=== PATIENT | female | born 1975 | race Caucasian/White ===

== ENCOUNTER 2016-11-17 11:10 | Observation (INO) ==
--- NOTE | 2016-11-17 11:40 | EKG Report ---
Stationary ECG Study [facility] ER Test Date: 11/17/2016 11:26:29 AM Pat Name: PHILIP ISSA Department: Room: Gender: F Tableau Analyst: Jarett Lim : 1975 Requested by: Barron Tejeda Order Number: [id number] Reading MD: CASSANDRA ANGLIN Intervals [place] Rate: 72 P: 30 UT: 163 QRS: 40 QRSD: 87 T: 46 QT: 387 QTc: 411 Interpretive Statements SINUS RHYTHM Electronically Signed On 11-17-16 16:24:00 CDT by CASSANDRA ANGLIN [email or web address]
[2016-11-17] MEDS ORDERED: METOPROLOL TARTRATE 5 MG/5 ML VIAL IV STA (11:49)
[2016-11-17] MEDS ORDERED: ENOXAPARIN 100 MG/ML SYRINGE SUBCUT STA (11:49)
[2016-11-17] MEDS ORDERED: MORPHINE 2 MG/1 ML SYRINGE IV PRN ×2 (11:49→14:23)
[2016-11-17] MEDS ORDERED: NITROGLYCERIN 2% OINT 1 INCH/GM PACK TOP STA (11:49)
[2016-11-17] MEDS ORDERED: ASPIRIN 325 MG TABLET PO STA (11:49)
[2016-11-17] MEDS ORDERED: ONDANSETRON 4 MG/2 ML VIAL IV PRN ×2 (11:49→14:23)
--- NOTE | 2016-11-17 11:53 | Emergency Department Note ---
Arrival - Arrival Chief Complaint: Chest Pain Stated Complaint: chest pain/pressure. Numb arms, sweating, lathag. ED Nursing Triage Note: c/o mid-sternal chest pain radiating into bilateral shoulders/arms onset approx 2 weeks ago. Describes as pressure. +shortness of breath. +nausea. +generalized weakness. Also c/o numbness to bilateral arms onset 11/03/16. Mode of Arrival: Ambulatory Limitations: No Limitations Source: Patient, RN Notes Reviewed Time Seen by Provider: 11/17/16 11:44 - History of Present Illness HPI Narrative: Patient is a 41-year-old white female with a two-week history of a "sharp" chest pain off and on. Over the weekend 3 days ago this changed to a "pressure " sensation. Patient states that her pain is better when she remains still. She does have some exertional diaphoresis. She denies shortness of breath. She states that she has "numbness" in both arms. She denies any nausea or vomiting. She denies any history of diabetes mellitus. She does have a history of hypertension. She has never been a cigarette smoker. Onset (ago): week(s) (2) Consistency: constant Severity: moderate Date of Last Menstrual Period: 3 weeks ago Allergies/Adverse Reactions: Allergies Allergy/AdvReac Type Severity Reaction Status Date / Time Sulfa (Sulfonamide Allergy RASH Verified 11/17/16 11:24 Antibiotics) ciprofloxacin [From Cipro] AdvReac Anxiety Verified 11/17/16 11:24 levofloxacin [From Levaquin] AdvReac Anxiety Verified 11/17/16 11:24 Review of System - Review of System 12 point system: reviewed and no additional remarkable complaints except as stated - Review of System Constitutional: Absent: chills, fever Respiratory: Absent: cough, respiratory distress Cardiovascular: Present: chest pain. Absent: palpitations Gastrointestinal: Present: abdominal pain (Epigastric). Absent: nausea, vomiting Medical,Surgical,& Family Hx - Medical History Cardio: History of: Hypertension - Social History Smoking Status: Never smoker Frequency of Alcohol Use: None Type of Drug Use: None Functional capacity: independent ambulation Exam Vital Signs: Vital Signs Temperature 97.7 F 11/17/16 11:49 Pulse Rate 68 11/17/16 12:30 Respiratory Rate 14 11/17/16 12:30 Blood Pressure 121/78 11/17/16 12:30 O2 Sat by Pulse Oximetry 96 11/17/16 12:30 GENERAL: This is a well-nourished well-developed white female in no apparent distress. VITAL SIGNS: Reviewed HEENT: Head is atraumatic and normocephalic. Pupils are equal round react to light. Extraocular movements are intact. Oropharynx is benign with moist mucous membranes. NECK: Neck is soft and supple without tenderness. There are no masses. There is no lymphadenopathy. LUNGS: Lungs are clear to auscultation. Chest rises symmetrically. There is anterior chest wall tenderness to palpation. CV: Heart is regular rate and rhythm without murmurs rubs or gallops. ABDOMEN: Abdomen is soft, nontender to palpation. There are no abdominal abnormal masses palpated. There is no organomegaly. Bowel sounds are present and active. SKIN: Skin is warm and dry. No rash. EXTREMITIES: Patient has full range of motion without tenderness. There is no pedal edema. NEUROLOGIC: Awake alert and oriented 4. Cranial nerves II through XII are grossly intact. Motor is 5 over 5 in all extremities bilaterally. Course - Consultations Consultation #1: Discussed with hospitalist. Patient will be admitted to their service. Time: 13:17 Results - Labs CBC & BMP: 11/17/16 12:09 11/17/16 12:09 Lab Results: I have reviewed the patients labs Labs: Laboratory Tests 11/17/16 12:09 Troponin I < 0.015 - EKG EKG results: interpreted by ERMD - Impressions EKG: Normal sinus rhythm with a rate of 72, normal ST-T waves, normal axis. - Diagnostic Findings Procedure: Chest x-ray: image reviewed by me (No infiltrates, no pleural effusions) Disposition Clinical Impression: Chest pain, Essential hypertension Case discussed with: patient Condition: Stable
[2016-11-17] MEDS ORDERED: NITROGLYCERIN 2% OINT 1 INCH/GM PACK TOP ONE (12:00)
[2016-11-17] MEDS ORDERED: ONDANSETRON 4 MG/2 ML VIAL ONE (12:00)
[2016-11-17] MEDS ORDERED: ENOXAPARIN 120 MG/0.8 ML SYRINGE SUBCUT ONE (12:00)
[2016-11-17] MEDS ORDERED: MORPHINE 2 MG/1 ML SYRINGE ONE (12:01)
[2016-11-17] MEDS ORDERED: METOPROLOL TARTRATE 5 MG/5 ML VIAL IV ONE (12:01)
[2016-11-17] MEDS ORDERED: ASPIRIN 325 MG TABLET ONE (12:01)
[2016-11-17 12:23] LABS: Basophils % 0.4 % (0.0-0.8); Eosinophils # 0.2 10*3/uL (0.0-0.87); Eosinophils % 2.3 % (0.00-10.9); Hematocrit 38.5 VOL% (35.7-47.0); Hemoglobin 13.7 GM/DL (12.0-16.0); Immature Granulocytes % 0.3 %; Immature Granulocytes Absolute 0.03 #; Lymphocytes # 1.7 10*3/uL (1.4-4.0); Mean Corpuscular HGB Conc 35.6 GM/DL (32-36); Mean Corpuscular Hemoglobin 31 PG (27-34); Mean Corpuscular Volume 86.3 FL (87-102); Mean Platelet Volume 10.5 FL (9.6-12.0); Monocytes # 0.8 10*3/uL (0.11-0.8); Monocytes % 7.7 % (1.7-12.7); Neutrophils # 7.2 10*3/uL (1.4-7.4); Neutrophils % 72.3 % (38.7-73.9); Platelet Count 219 T/CUMM (130-400); Red Blood Count 4.46 MC/CUMM (3.8-5.5); Red Cell Distribution Width 12.8 % (9.3-17.3); White Blood Count 9.9 T/CUMM (4-12)
[2016-11-17 12:27] LABS: Apearance,Urine Slightly Hazy (Clear); Bacteria,Urine Occasional /HPF (Few); Bilirubin,Urine Negative (Negative); Blood, Urine Small mg/dL (Negative); Glucose,Urine (UA) Negative (Negative); Ketones,Urine 5 mg/dL (Negative); Mucus,Urine Occasional /LPF (Occasional); Nitrite,Urine Negative (Negative); Protein,Urine Negative; RBC,Urine 1 /HPF (0-4); Squamous Epithelial Cell,Urine Occasional /HPF (0-10); Urine Color Yellow (Yellow); Urine Specific Gravity 1.013 (1.001-1.035); Urine Urobilinogen < 2.0 EU/DL (0.2-1.0); WBC,Urine 4 /HPF (0-6)
--- NOTE | 2016-11-17 12:35 | XRay Report ---
Exam: XR chest 2V Indication: Midline chest pain Comparison study: None Findings: The heart, mediastinum, and bony structures are within normal limits. There is no focal consolidation, pneumothorax or pleural effusion identified. Impression: No acute cardiopulmonary process. PROCEDURE INTERPRETED AT [facility] DEPARTMENT OF RADIOLOGY Final Report Signed by: Edwardo Farley
[2016-11-17 12:39] LABS: PT Patient Result 10.9 SECS; Partial Thromboplastin Time 27.9 SECS (0-40)
[2016-11-17 12:56] LABS: Albumin 3.5 G/DL (3.4-5.0); Bilirubin,Total 1.2 MG/DL (0.2-1.0); Calcium 8.6 MG/DL (8.5-10.1); Potassium 3.3 MMOL/L (3.5-5.1); Total Protein 7.1 G/DL (6.4-8.3)
[2016-11-17] MEDS ORDERED: guaiFENesin/DM ER 600-30 MG TABLET PO PRN (14:23)
[2016-11-17] MEDS ORDERED: diphenhydrAMINE CAP 25 MG CAPSULE PO PRN (14:23)
[2016-11-17] MEDS ORDERED: PROMETHAZINE 25 MG/1 ML VIAL IM PRN (14:23)
[2016-11-17] MEDS ORDERED: DOCUSATE SODIUM 100 MG CAPSULE PO PRN (14:23)
[2016-11-17] MEDS ORDERED: ACETAMINOPHEN 325 MG TABLET PO PRN ×2 (14:23)
--- NOTE | 2016-11-17 14:31 | Hospitalist History & Physical ---
<LrasJia guy - Last Filed: 11/17/16 14:28> Assessment and Plan - Time spent with patient Time spent with patient: Greater than 30 minutes (1) Bilateral lower extremity edema Status: Acute Assessment and plan: 41-year-old white female with history of hypertension admitted by the hospitalist service with 2 week history of chest pain and pressure with numbness and tingling in her bilateral hands and diaphoresis along with lower extremity edema. Patient is being admitted to telemetry unit with serial troponins and EKG. Cardiology will be consulted for her increased risk for heart disease. Patient also has bilateral lower extremity edema so we will start diuresis. Will check an echo for signs of heart failure. Will hold off on IV fluids and keep her n.p.o. until cardiology sees her. Dr. Cervantes will see and examine patient and further recommendations to follow. Current Visit: Yes (2) Chest pain Status: Acute Current Visit: Yes (3) Essential hypertension Status: Acute Current Visit: Yes History of Present Illness Chief complaint: Chest pain and pressure History of present illness: Ms. Verdin is a 41 year old white female with history of hypertension presenting to the ED with a 2 week history of intermittent chest pain and pressure. Patient states approximately 2 weeks ago she started getting stabbing substernal chest pain that is increased in frequency. Patient states in the last day or 2 it is now pressure in her substernal area that is associated with diaphoresis and bilateral arm numbness and tingling. Patient states she is hardly been able to get out of bed the last day or 2 because it makes her weak and dizzy and increases the pressure and makes her sweat. Patient is obese with a sedentary lifestyle and she has a family history of heart disease and MA resulting in at a young age. Patient is not a smoker. She denies headache but states she does have blurry vision with these episodes. She also has some mild shortness of breath with them as well. She denies abdominal pain, constipation or diarrhea, and she denies lower extremity edema but upon inspection she does have pitting edema in the pretibial region. She is afebrile and her vital signs are stable. EKG and troponins are normal. She does have a mild elevated T bili of 1.2 and small leukocytes in her urine. After discussion with Dr. Ellsworth the ED physician and Dr. Cervantes the admitting hospitalist, it was agreed patient be admitted for further evaluation and treatment. Home Medications Medication Instructions Recorded Confirmed Type Methyldopa 500 mg PO QAM 11/17/16 11/17/16 History hydroCHLOROthiazide 25 mg PO QAM 11/17/16 11/17/16 History [Hydrochlorothiazide] Allergies Allergy/AdvReac Type Severity Reaction Status Date / Time Sulfa (Sulfonamide Allergy RASH Verified 11/17/16 11:24 Antibiotics) ciprofloxacin [From Cipro] AdvReac Anxiety Verified 11/17/16 11:24 levofloxacin [From Levaquin] AdvReac Anxiety Verified 11/17/16 11:24 Medical,Surgical,& Family Hx - Medical History Cardio: History of: Hypertension - Surgical History Abdominal Surgeries: Patient denies: Abdominal Surgery Reproductive Surgeries: Patient denies;: Breast Surgery - Family History Family History: Reports;: Family Cancer, Family Heart Disease - Social History Smoking Status: Never smoker Frequency of Alcohol Use: None Type of Drug Use: None Marital Status: Lives With:: Spouse Functional capacity: independent ambulation 12 point system: reviewed and no additional remarkable complaints except as stated Exam - Constitutional Vitals: Period Temp Pulse Resp BP Sys/Bell Pulse Ox Last 24 Hr 97.7 F-97.7 F 65-84 14-20 110-133/69-96 95-98 Exam: Constitutional System: No distress. No tremulousness. Head: Normocephalic, atraumatic. Ears, Nose and Throat System: No evidence of Otitis or Mastoiditis. No epistaxis or discharge Eyes System: Pupils equal, round, and reactive. Extraocular muscles intact. Neck: Supple, without adenopathy, No jugular venous distention. No thyromegaly, neck mass, or prior surgery apparent. Respiratory System: Chest clear to auscultation. Cardiovascular System: Heart with regular rate and rhythm. No murmur. GI System: Abdomen soft, nontender. Normo active bowel sounds present. Musculoskeletal System: limbs with +1 pedal edema with pitting and pretibial region. Diminished distal pulses. Neurological System: No discernable sensory deficit. No aphasia Psychiatric System: Conversation is rational Results - Labs CBC & BMP: 11/17/16 12:09 11/17/16 12:09 Lab Results: I have reviewed the past 24 hour labs - EKG EKG results: sinus rhythm - Diagnostic Findings Procedure: Chest x-ray: report reviewed by me (No acute cardiopulmonary process) <Jaya Cervantes - Last Filed: 11/17/16 14:57> History of Present Illness History of present illness: Ms. Verdin is a 41 year old female with chest pain. She has a previous history of hypertension and a family history of coronary artery disease and early . She has no known previous history of heart disease herself. I have interviewed the patient, examined the patient, and reviewed all the available laboratory tests and x-ray results. I agree with the assessment and plans of SAMEERA Espinoza. The patient will be admitted to the telemetry unit. Serial electrocardiograms and cardiac enzymes will be obtained. Cardiology has been consulted. Exam - Constitutional Vitals: Period Temp Pulse Resp BP Sys/Bell Pulse Ox Last 24 Hr 97.7 F-97.7 F 65-84 14-20 110-133/69-96 95-98 Results - Labs CBC & BMP: 11/17/16 12:09 11/17/16 12:09
[2016-11-17] MEDS ORDERED: POTASSIUM CHLORIDE 20 MEQ TABLET PO PRN (14:34)
[2016-11-17] MEDS ORDERED: NITROGLYCERIN SL 0.4 MG TABLET SL PRN (14:38)
[2016-11-17 14:52] LABS: Risk Ratio 6.14
[2016-11-17] MEDS: PANTOPRAZOLE 40 MG TABLET PO SCH (16:33)
[2016-11-17] MEDS: FUROSEMIDE 40 MG/4 ML VIAL IV SCH (16:34)
--- NOTE | 2016-11-17 17:00 | EKG Report ---
Stationary ECG Study [facility] Test Date: 11/17/2016 5:00:03 PM Pat Name: PHILIP ISSA Department: Room: 268 Gender: F Central Supply Nurse: EZEKIEL : 1975 Requested by: Hector Nash Order Number: [id number] Reading MD: CASSANDRA ANGLIN Intervals [place] Rate: 63 P: 13 GA: 176 QRS: 22 QRSD: 89 T: 31 QT: 424 QTc: 431 Interpretive Statements SINUS RHYTHM LOW QRS VOLTAGE IN PRECORDIAL LEADS POSSIBLE ANTERIOR MYOCARDIAL INFARCTION, OF INDETERMINATE AGE Electronically Signed On 11-17-16 20:16:22 CDT by CASSANDRA ANGLIN [email or web address]
--- NOTE | 2016-11-17 19:19 | Cardiology Consult Note ---
El Romano Vanessa, RN, am scribing for, and in the presence of, Radha Johnson MD 19:19. Assessment and Plan - Time spent with patient Time spent with patient: Greater than 30 minutes (Due to assessment, planning, documentation, and medication review) (1) Chest pain Status: Acute Assessment and plan: SEE PLAN OF CARE LISTED BELOW. Current Visit: Yes (2) Dyslipidemia Status: Acute Assessment and plan: SEE PLAN OF CARE LISTED BELOW. Current Visit: Yes (3) Bilateral lower extremity edema Status: Acute Assessment and plan: SEE PLAN OF CARE LISTED BELOW. Current Visit: Yes (4) Essential hypertension Status: Chronic Assessment and plan: SEE PLAN OF CARE LISTED BELOW. 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 Verdin, 41 year old WF, with PMHx hypertension, dyslipidemia (undiagnosed) , morbid obesity, sedentary lifestyle, former smoking. Strong positive family history of CAD. 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. Does not have a PCP but has been seen by a nurse practitioner at [facility] for refills of her antihypertensive. Patient is now currently admitted to [facility] tele unit after presenting to the ED earlier this morning with complaints of chest pressure, numbness/tingling or bilateral arms and hands with onset 2 weeks ago. Reported she initially felt that it was a viral/GI related illness, but she has now had a few episodes in the past week in which she has felt dizzy, weak, and had blurred vision to the point she felt she was going to pass out. She also reports exertional chest pressure with no aggravating factors with associated shortness of breath and fatigue. Last week while at work, she reports an episode of nausea, diaphoresis, and chest pressure after a "fatty breakfast" and reportedly had glucose of 150, checked by her coworker 1 hour after eating. Patient says these episodes have increased over the past 2 days, and with minimal activity she has increased chest pressure (rated an "8" at its worst) with sweating. Reports only alleviating factor is lying completely flat. EKG and cardiac biomarkers are benign. Cardiology consulted for further evaluation. No orthopnea, PND. Reports she may have some palpitations at times, but she cannot elaborate on this. Denies lower extremity edema but by exam, has moderate pretibial and pedal edema. Echocardiogram obtained earlier in the ED for review. Patient has been started on IV Lasix therapy. Chest x-ray today is normal with no cardiomegaly, infiltrate, or other. BP 130/80. She is pain-free and complaint free during exam this afternoon. Hypokalemic with K+ 3.3. Total bilirubin slightly elevated, 1.2. LFTs normal. Troponin nondetectable. Fasting lipid panel remarkable for total cholesterol 227, LDL 168, HDL 37, triglycerides 37. Small leukocytosis per UA. ASSESSMENT/PLAN: 1. CHEST PAIN - Atypical for cardiac etiology. Symptoms are suspicious for orthostasis. ?? Will review echocardiogram. We may need to stop her Ald[place], I am not sure why she is on this medication but we will double check with her. I am going to rule out pulmonary embolism because she is short of breath even with conversation. 2. HYPERTENSION - Well controlled at this time. Will review and adjust medications as medical condition warrants. 3. DYSLIPIDEMA - Initiate Crestor 10 mg PO nightly. 4. HYPOKALEMIA - Being repleted with K-Dur 20 meq PO today by hospital medicine. Follow up BMP in the AM. 5. BILATERAL LOWER EXTREMITY EDEMA - Echo pending. IV Lasix has been started. Chest x-ray is benign. CC: Jaya Cervantes - Home Medications and Allergies Home Medications: Home Medications Medication Instructions Recorded Confirmed Type Methyldopa 500 mg PO QAM 11/17/16 11/17/16 History hydroCHLOROthiazide 25 mg PO QAM 11/17/16 11/17/16 History [Hydrochlorothiazide] Allergies/Adverse Reactions: Allergies Allergy/AdvReac Type Severity Reaction Status Date / Time Sulfa (Sulfonamide Allergy RASH Verified 11/17/16 11:24 Antibiotics) ciprofloxacin [From Cipro] AdvReac Anxiety Verified 11/17/16 11:24 levofloxacin [From Levaquin] AdvReac Anxiety Verified 11/17/16 11:24 - Constitutional Constitutional: Present: excessive sweating, fatigue, lethargy. Absent: anorexia, chills, daytime sleepiness, fever(s), frequent falls, night sweats, weakness, weight gain, weight loss - EENT Eyes: Present: requires corrective lense. Absent: blurry vision Ears: Absent: decreased hearing Nose, mouth and throat: Absent: dysphagia, epistaxis, nasal congestion, neck pain, sinus pressure, throat swelling - Cardiovascular Cardiovascular: Present: chest pain at rest, chest pain with activity, dyspnea on exertion, radiating jaw, neck or arm pain (Bilateral upper extremity numbness lasting), lightheadedness. Absent: claudication, diaphoresis, dyspnea , orthopnea, palpitations - Respiratory Respiratory: Present: dyspnea on exertion. Absent: cough, pain on inspiration - Gastrointestinal Gastrointestinal: Absent: abdominal pain, constipation, cramping, diarrhea, heartburn, melena, nausea, vomiting, jaundice - Genitourinary Genitourinary: Absent: abnormal vaginal bleeding, dysuria, flank pain, hematuria , urinary frequency - Musculoskeletal Musculoskeletal: Absent: arthralgias, limited range of motion, myalgias - Neurological Neurological: Absent: abnormal gait, abnormal speech, confusion, dizziness, syncope, tremor(s) - Psychiatric Psychiatric: Present: anxiety. Absent: panic attacks - Endocrine Endocrine: Present: fatigue. Absent: cold intolerance, heat intolerance, polydipsia - Hematologic/Lymphatic Hematologic/Lymphatic: Absent: easy bleeding, easy bruising Medical,Surgical,& Family Hx - Medical History Cardio: History of: Hypertension No history of: Cardiac Dysrhythmia, CHF, CAD, [place], Pacemaker, PVD Psychological: No history of: Anxiety Disorders Neurology: No history of: Dementia, Seizures, TIA Endocrine: No history of: Diabetes Mellitus (IDDM), Dyslipidemia, Thyroid Disorder Rheumatology: No history of;: Rheumatoid Arthritis, Systemic Lupus Erythematosus Respiratory: No history of: COPD, Obstructive Sleep Apnea, Pulmonary Hypertension Renal: No history of: Dialysis, Renal Failure Genitourinary: No history of: Recurring Urinary Tract Infections Gastrointestinal: No history of: Esophageal Varices, GERD, Gastrointestinal Bleed, Pancreatitis , Ulcerative Colitis Musculoskeletal: No history of: Back/Neck Problems, Degenerative Disk Disease, Musculoskeletal Cancer Hematology: No history of: Anemia, Blood Transfusion Reaction, Bleeding Problems, Clotting Problems Reproductive: No history of: Breast Cancer Other: No history of: Cancer, HIV - Surgical History Cardiac Surgeries: Patient Denies: Cardiac Catheterization, Carotid Endarterectomy Abdominal Surgeries: Patient denies: Abdominal Surgery Reproductive Surgeries: Patient denies;: Breast Surgery - Family History Family History: Reports;: Family Cancer, Family Heart Disease, Family Hypertension, Family Stroke - Social History Smoking Status: Former smoker Have you smoked in the last 12 months: No Frequency of Alcohol Use: None Type of Drug Use: None Marital Status: Lives With:: Spouse Functional capacity: independent ambulation Physical Examination Vital Signs Temp Pulse Resp BP Pulse Ox 97.7 F 84 20 130/96 97 11/17/16 11:20 11/17/16 11:20 11/17/16 11:20 11/17/16 11:20 11/17/16 11:20 General: Present: No Apparent Distress, Other (Morbidly obese) HEENT: Present: PERRL, Normocephaly. Absent: Pallor Neck: Present: Supple Neck, Midline Trachea, No JVD/HJR, No Masses, No Bruit Cardiac: Present: Reg Rate and Rhythm. Absent: Audible Murmur, Tachycardia, Bradycardia Lungs: Present: Clear Ascult./Percussion, Oxygen, No Wheeze, Rales, Rhonchi Neuro: Present: Numbness, Tingling, Grossly Intact. Absent: Weakness, Resting Tremor, Essential Tremor Abdomen: Present: Soft, Active Bowel Sounds, No Masses (2L/NC bilateral upper extremities lateral upper extremities), No Pulsations/Bruits, Other (Morbidly obese). Absent: Tender, Firm Skin: Present: Clear, Other (Warm, dry). Absent: Rash, Suspicious Lesions, Bruising Musculoskeletal: Present: Normal Range of Motion Extremities: Present: No Clubbing, No Cyanosis, Normal Upper Extr. Pulses (3+ bilateral), Normal Lower Extr. Pulses (1-2+ bilaterally), Edema (Pretibial 2+), Bilateral Pedal Edema (1-2+), Capillary Refill (Normal) Result/EKG - Labs CBC & BMP: 11/17/16 12:09 11/17/16 12:09 Lab Results: I have reviewed the past 24 hour labs Labs: Laboratory Results - last 24 hr 11/17/16 11/17/16 11/17/16 11:50 12:09 12:09 WBC RBC Hgb Hct MCV MCH MCHC RDW Plt Count MPV Neut % (Auto) Lymph % (Auto) [place] % (Auto) Eos % (Auto) Baso % (Auto) Neut # (Auto) Lymph # (Auto) [place] # (Auto) Eos # (Auto) Baso # (Auto) Immature Gran % Nucleated RBC % Immature Gran # Nucleated RBCs # Immature Plt Fraction INR 1.0 PT Patient/Control Mix 10.9 Circ Anticoag PTT 27.9 Sodium 136 Potassium 3.3 L Chloride 101 Carbon Dioxide 27 Anion Gap 11.3 BUN 10 Creatinine 0.90 GFR Calculation 104 BUN/Creatinine Ratio 11.00 Glucose 83 Calculated Osmolality 269.0 L Calcium 8.6 Total Bilirubin 1.20 H AST 25 ALT 38 Alkaline Phosphatase 68 Troponin I Total Protein 7.1 Albumin 3.5 Globulin 3.6 H Albumin/Globulin Ratio 0.9 L Triglycerides Cholesterol LDL Cholesterol VLDL Cholesterol HDL Cholesterol Heart Disease Risk Ratio Urine Color Yellow Urine Appearance Slightly hazy Urine pH 6.0 Ur Specific [place] 1.013 Urine Protein Negative Urine Glucose (UA) Negative Urine Ketones 5 Urine Blood Small Urine Nitrate Negative Urine Bilirubin Negative Urine Urobilinogen < 2.0 H Urine Leukocytes Small H Urine RBC 1 Urine WBC 4 Ur Squamous Epith Cells Occasional Urine Bacteria Occasional Urine Mucus Occasional Ur Culture Indicated? Results to follow 11/17/16 11/17/16 11/17/16 12:09 12:09 12:09 WBC 9.9 RBC 4.46 Hgb 13.7 Hct 38.5 MCV 86.3 L MCH 31 MCHC 35.6 RDW 12.8 Plt Count 219 MPV 10.5 Neut % (Auto) 72.3 Lymph % (Auto) 17.0 L [place] % (Auto) 7.7 Eos % (Auto) 2.3 Baso % (Auto) 0.4 Neut # (Auto) 7.2 Lymph # (Auto) 1.7 [place] # (Auto) 0.8 Eos # (Auto) 0.2 Baso # (Auto) 0.0 Immature Gran % 0.3 Nucleated RBC % 0.0 Immature Gran # 0.03 Nucleated RBCs # 0.00 Immature Plt Fraction 0.0 INR PT Patient/Control Mix Circ Anticoag PTT Sodium Potassium Chloride Carbon Dioxide Anion Gap BUN Creatinine GFR Calculation BUN/Creatinine Ratio Glucose Calculated Osmolality Calcium Total Bilirubin AST ALT Alkaline Phosphatase Troponin I < 0.015 Total Protein Albumin Globulin Albumin/Globulin Ratio Triglycerides 130 Cholesterol 227 H LDL Cholesterol 168.0 VLDL Cholesterol 26.0 HDL Cholesterol 37 L Heart Disease Risk Ratio 6.14 Urine Color Urine Appearance Urine pH Ur Specific [place] Urine Protein Urine Glucose (UA) Urine Ketones Urine Blood Urine Nitrate Urine Bilirubin Urine Urobilinogen Urine Leukocytes Urine RBC Urine WBC Ur Squamous Epith Cells Urine Bacteria Urine Mucus Ur Culture Indicated? - Diagnostic Findings Procedure: Chest x-ray: image reviewed by me, report reviewed by me - EKG EKG results: interpreted by me, no acute changes EKG shows: sinus rhythm Alex Romano Jennifer, MD, personally performed the services described in this documentation, ascribed by Mary Gallegos RN in my presence, and it is both accurate and complete [id number] .
--- NOTE | 2016-11-17 20:08 | ECHO Report ---
Ruth Verdin Exam Date: 11/17/2016 14:41 Referring Physician: Technologist: carlene Funes ARDMS, RVT Age: 41 Ht (in): 66 Wt (lb): 270 Gender: F Exam Location: [facility] Echo Indications: Chest pain, unspecified BP: 133 / 84 HR: 65 Rhythm: Sinus Technical Quality: Poor IMPRESSIONS Normal LV systolic function, ejection fraction 65%. Grade 1/4 diastolic dysfunction. Trace pulmonic regurgitation. MEASUREMENTS (Male / Female) Normal Values 2D ECHO LV Diastolic Diameter PLAX 4.5 cm 4.2 - 5.9 / 3.9 - 5.3 cm LV Systolic Diameter PLAX 3.1 cm LV Fractional Shortening PLAX 31.3 % IVS Diastolic Thickness 1.0 cm 0.6 - 1.0 / 0.6 - 0.9 cm LVPW Diastolic Thickness 0.7 cm 0.6 - 1.0 / 0.6 - 0.9 cm RV Internal Dim ED PLAX 2.3 cm Aortic Root Diameter 2.7 cm LA Systolic Diameter LX 3.4 cm 3.0 - 4.0 / 2.7 - 3.8 cm DOPPLER TR Peak Velocity 168.0 cm/s TR Peak Gradient 11.3 mmHg FINDINGS Left Ventricle Normal left ventricular cavity size. Normal left ventricular wall thickness. Left ventricular ejection fraction is estimated at 65%. Right Ventricle The right ventricle is normal in size and function. Right Atrium The right atrium is normal in size. Left Atrium The left atrium is normal in size. Mitral Valve Morphologically normal mitral valve without significant stenosis or prolapse. There is no mitral regurgitation. Aortic Valve Morphologically normal aortic valve without significant sclerosis or stenosis. There is no aortic regurgitation. Tricuspid Valve Morphologically normal tricuspid valve without significant stenosis or regurgitation. Pulmonary artery systolic pressure is normal. Pulmonic Valve Morphologically normal pulmonic valve. Trace pulmonary valve regurgitation. Pericardium Normal pericardium without effusion. Aorta Normal ascending aorta dimension. Radha Johnson MD (Electronically Signed) Final Date: 17 November 2016 20:07
[2016-11-17] MEDS: ROSUVASTATIN 10 MG TABLET PO SCH (20:32)
--- NOTE | 2016-11-17 22:03 | CT Report ---
Exam: CT chest PE study The total DLP is 659.9 mGy*cm. Date: 11/17/2016 7:20 PM Indication: Chest pain, shortness of breath, lower extremity edema Comparison: Chest radiograph 11/17/2016 at 12:20 PM Technical: Images were obtained from the thoracic inlet through the lung bases with 80 cc of Omnipaque 350 with axial and coronal imaging available for review. Dose reduction: This CT exam was performed using one or more of the following dose reduction techniques: Automated exposure control, automated adjustment of the mA and/or KV according to patient size, or use of iterative reconstruction technique. Findings: Pulmonary arteries: Contrast bolus timing is suboptimal for evaluation of the segmental and subsegmental pulmonary arteries. There are no central or saddle pulmonary emboli identified. Mediastinum/vessels/lymph nodes: Heart and great vessels appear unremarkable. There is no evidence of pericardial effusion. The aorta and great vessels appear widely patent. There is no adenopathy in the chest. Lungs: Minimal posterior basilar atelectasis is noted. Otherwise, the lungs are clear. There is no pneumothorax or pleural effusion. There is no focal consolidation. No suspicious pulmonary nodules or masses are identified. Thyroid: Thyroid gland appears within normal limits. No acute abnormality is identified within the visualized upper abdomen. BONES: No acute or suspicious appearing osseous abnormalities are identified. Impression: No evidence of central or saddle pulmonary emboli. Contrast bolus timing is severely limited for evaluation of the segmental and subsegmental pulmonary arteries. No other acute abnormality within the chest or upper abdomen to explain patient's symptoms. PROCEDURE INTERPRETED AT [facility] DEPARTMENT OF RADIOLOGY Final Report Signed by: Edwardo Farley
[2016-11-18 04:21] LABS: Basophils % 0.4 % (0.0-0.8); Eosinophils # 0.3 10*3/uL (0.0-0.87); Eosinophils % 3.1 % (0.00-10.9); Hemoglobin 13.5 GM/DL (12.0-16.0); Immature Granulocytes % 0.4 %; Immature Granulocytes Absolute 0.03 #; Lymphocytes # 1.6 10*3/uL (1.4-4.0); Lymphocytes % 19.6 % (21.3-54.2); Mean Corpuscular HGB Conc 35.5 GM/DL (32-36); Mean Corpuscular Hemoglobin 30 PG (27-34); Mean Corpuscular Volume 85.6 FL (87-102); Mean Platelet Volume 10.6 FL (9.6-12.0); Monocytes # 0.8 10*3/uL (0.11-0.8); Neutrophils # 5.6 10*3/uL (1.4-7.4); Neutrophils % 66.5 % (38.7-73.9); Platelet Count 196 T/CUMM (130-400); Red Blood Count 4.44 MC/CUMM (3.8-5.5); Red Cell Distribution Width 12.8 % (9.3-17.3); White Blood Count 8.4 T/CUMM (4-12)
[2016-11-18 04:49] LABS: Calcium 8.5 MG/DL (8.5-10.1); Magnesium 2.2 MG/DL (1.8-2.4); Osmolality,Calculated 271.8 MOS/KG (273-304); Potassium 3.2 MMOL/L (3.5-5.1)
[2016-11-18 05:38] LABS: Cannabinoid Screen,Urine Negative (Negative)
[2016-11-18 05:39] LABS: Barbiturates Screen,Urine Negative (Negative); Benzodiazepines Screen,Urine Negative (Negative); Opiate Screen,Urine Negative (Negative); Phencyclidine Screen,Urine Negative (Negative)
[2016-11-18 11:25] LABS: Barbiturates Screen,Urine Negative (Negative); Benzodiazepines Screen,Urine Negative (Negative); Cannabinoid Screen,Urine Negative (Negative); Opiate Screen,Urine Negative (Negative); Phencyclidine Screen,Urine Negative (Negative)
--- NOTE | 2016-11-18 12:22 | Event Note ---
Patient underwent cardiac stress test today. She achieved target heart rate without difficulty Via Markel protocol. She tolerated stress test well without complaints of chest pain, heaviness or tightness. She experienced mild dyspnea on exertion. Fair exercise tolerance. Heart rate and blood pressure responded appropriately to exercise. No significant ST changes noted per EKG. No arrhythmias. Patient now on to final nuclear scan. Dr. Johnson to read, interpret and advise.
--- NOTE | 2016-11-18 13:07 | Cardiology Progress Note ---
El Romano Vanessa, RN, am scribing for, and in the presence of, Radha Johnson MD 13:07. Assessment and Plan - Time spent with patient Time spent with patient: Greater than 30 minutes (1) Chest pain Status: Acute Assessment and plan: SEE PLAN OF CARE LISTED BELOW. Current Visit: Yes (2) Dyslipidemia Status: Acute Assessment and plan: SEE PLAN OF CARE LISTED BELOW. Current Visit: Yes (3) Bilateral lower extremity edema Status: Acute Assessment and plan: SEE PLAN OF CARE LISTED BELOW. Current Visit: Yes (4) Essential hypertension Status: Chronic Assessment and plan: SEE PLAN OF CARE LISTED BELOW. Current Visit: Yes Cardiology - PN: Subj Interval history: MEDICAL STAFF SPECIALIST: NONE SUMMARY: 41-year-old WF, PMHx hypertension, dyslipidemia (newly diagnosed), morbid obesity, sedentary lifestyle, former smoking, strong family history of CAD. This patient was [facility] after presenting to ED with complaints of chest pressure, numbness/tingling of bilateral arms and hands with onset 2 weeks prior. She also reported some dizziness, weakness, blurry vision with episodes. No true syncope. Admitted aggravating factor to exertion. The only identifiable alleviating factor is lying completely flat and resting. EKG and cardiac biomarkers benign for ischemic change. Patient denies recent lower extremity edema, but on presentation had moderate pretibial and pedal edema. Since admission, has been initiated on IV Lasix with good urine output. Echocardiogram on admission with normal LV systolic function, EF 65%, mild diastolic dysfunction, no significant valvular disease or pulmonary hypertension. Chest CT with no evidence of PE. 2016: Patient denies further chest pressure. Reports overall she is feeling better and is breathing more comfortably. Positive urine drug screen results discussed with her, and she adamantly denies illicit drug use. Patient very upset and tearful at this news. Offered to repeat urine screen in case of erroneous result , and patient is agreeable. Cell counts are stable. Hypokalemic with K+ 3.2. Telemetry monitoring and serial troponin levels normal. Her is present provides additional history. They both confirm that the patient has had a significantly decreased exercise tolerance over the last several days and it seems somewhat inexplicable at this point. ASSESSMENT/PLAN: 1. CHEST PAIN - Atypical for cardiac etiology. However, her associated dyspnea could represent an anginal equivalent. Normal systolic function per echo with no significant valvular disease. Pulmonary embolism has been ruled out with chest CT. Continued to have some chest pressure overnight and some shortness of breath with conversation. With these clinical findings and risk factors for CAD , we will proceed with nuclear stress testing later this morning. Patient has been NPO. Repeating urine drug sreen. 2. HYPERTENSION - Well controlled at this time. Will review and adjust medications as medical condition warrants. 3. DYSLIPIDEMA - Initiate Crestor 10 mg PO nightly. Follow-up fasting lipid panel in 4-6 weeks. 4. HYPOKALEMIA - Being repleted with K-Dur 20 meq PO today by hospital medicine. Follow up BMP in the AM. 5. BILATERAL LOWER EXTREMITY EDEMA -normal LV systolic function with mild diastolic dysfunction per echo. Continue IV Lasix. Exam (Progress Note) - Constitutional Vitals: Period Temp Pulse Resp BP Sys/Bell Pulse Ox Last 24 Hr 97.2 F-98.1 F 64-84 14-20 101-135/67-96 95-98 Exam: General: Present: No Apparent Distress, Other (severely, morbidly obese) HEENT: Present: PERRL, Normocephaly. Absent: Pallor Neck: Present: Supple Neck, Midline Trachea, No JVD/HJR, No Masses, No Bruit Cardiac: Present: Reg Rate and Rhythm. Absent: Audible Murmur, Tachycardia, Bradycardia Lungs: Present: Clear Ascult./Percussion. No Wheeze, Rales, Rhonchi. Not requiring supplemental oxygen. Neuro: Present: Numbness, Tingling, Grossly Intact. Absent: Weakness, Resting Tremor, Essential Tremor Abdomen: Present: Soft, Active Bowel Sounds, No Masses. No Pulsations/Bruits, Other (Morbidly obese). Absent: Tender, Firm Skin: Present: Clear, Other (Warm, dry, intact). Absent: Rash, Suspicious Lesions, Bruising Musculoskeletal: Present: Normal Range of Motion Extremities: Present: No Clubbing, No Cyanosis, Normal Upper Extr. Pulses (3+ bilateral), Normal Lower Extr. Pulses (1-2+ bilaterally), Edema (Pretibial 2+), Bilateral Pedal Edema (1-2+), Capillary Refill (Normal) Psych: tearful, appears depressed this morning. Result/EKG - Labs CBC & BMP: 11/18/16 04:05 11/18/16 04:05 Lab Results: I have reviewed the past 24 hour labs Labs: Laboratory Results - last 24 hr 11/17/16 11/17/16 11/17/16 11:50 12:02 12:09 WBC RBC Hgb Hct MCV MCH MCHC RDW Plt Count MPV Neut % (Auto) Lymph % (Auto) [place] % (Auto) Eos % (Auto) Baso % (Auto) Neut # (Auto) Lymph # (Auto) [place] # (Auto) Eos # (Auto) Baso # (Auto) Immature Gran % Nucleated RBC % Immature Gran # Nucleated RBCs # Immature Plt Fraction INR 1.0 PT Patient/Control Mix 10.9 Circ Anticoag PTT 27.9 Sodium Potassium Chloride Carbon Dioxide Anion Gap BUN Creatinine GFR Calculation BUN/Creatinine Ratio Glucose Calculated Osmolality Calcium Magnesium Total Bilirubin AST ALT Alkaline Phosphatase Troponin I Total Protein Albumin Globulin Albumin/Globulin Ratio Triglycerides Cholesterol LDL Cholesterol VLDL Cholesterol HDL Cholesterol Heart Disease Risk Ratio Urine Color Yellow Urine Appearance Slightly hazy Urine pH 6.0 Ur Specific [place] 1.013 Urine Protein Negative Urine Glucose (UA) Negative Urine Ketones 5 Urine Blood Small Urine Nitrate Negative Urine Bilirubin Negative Urine Urobilinogen < 2.0 H Urine Leukocytes Small H Urine RBC 1 Urine WBC 4 Ur Squamous Epith Cells Occasional Urine Bacteria Occasional Urine Mucus Occasional Ur Culture Indicated? Results to follow Urine Opiates Screen Negative Ur Barbiturates Screen Negative Ur Phencyclidine Scrn Negative U Amphetamine/Methamph Positive H U Benzodiazepines Scrn Negative U Cocaine Metab Screen Negative U Cannabinoids Screen Negative 11/17/16 11/17/16 11/17/16 12:09 12:09 12:09 WBC 9.9 RBC 4.46 Hgb 13.7 Hct 38.5 MCV 86.3 L MCH 31 MCHC 35.6 RDW 12.8 Plt Count 219 MPV 10.5 Neut % (Auto) 72.3 Lymph % (Auto) 17.0 L [place] % (Auto) 7.7 Eos % (Auto) 2.3 Baso % (Auto) 0.4 Neut # (Auto) 7.2 Lymph # (Auto) 1.7 [place] # (Auto) 0.8 Eos # (Auto) 0.2 Baso # (Auto) 0.0 Immature Gran % 0.3 Nucleated RBC % 0.0 Immature Gran # 0.03 Nucleated RBCs # 0.00 Immature Plt Fraction 0.0 INR PT Patient/Control Mix Circ Anticoag PTT Sodium 136 Potassium 3.3 L Chloride 101 Carbon Dioxide 27 Anion Gap 11.3 BUN 10 Creatinine 0.90 GFR Calculation 104 BUN/Creatinine Ratio 11.00 Glucose 83 Calculated Osmolality 269.0 L Calcium 8.6 Magnesium Total Bilirubin 1.20 H AST 25 ALT 38 Alkaline Phosphatase 68 Troponin I < 0.015 Total Protein 7.1 Albumin 3.5 Globulin 3.6 H Albumin/Globulin Ratio 0.9 L Triglycerides Cholesterol LDL Cholesterol VLDL Cholesterol HDL Cholesterol Heart Disease Risk Ratio Urine Color Urine Appearance Urine pH Ur Specific [place] Urine Protein Urine Glucose (UA) Urine Ketones Urine Blood Urine Nitrate Urine Bilirubin Urine Urobilinogen Urine Leukocytes Urine RBC Urine WBC Ur Squamous Epith Cells Urine Bacteria Urine Mucus Ur Culture Indicated? Urine Opiates Screen Ur Barbiturates Screen Ur Phencyclidine Scrn U Amphetamine/Methamph U Benzodiazepines Scrn U Cocaine Metab Screen U Cannabinoids Screen 11/17/16 11/17/16 11/17/16 12:09 15:37 19:08 WBC RBC Hgb Hct MCV MCH MCHC RDW Plt Count MPV Neut % (Auto) Lymph % (Auto) [place] % (Auto) Eos % (Auto) Baso % (Auto) Neut # (Auto) Lymph # (Auto) [place] # (Auto) Eos # (Auto) Baso # (Auto) Immature Gran % Nucleated RBC % Immature Gran # Nucleated RBCs # Immature Plt Fraction INR PT Patient/Control Mix Circ Anticoag PTT Sodium Potassium Chloride Carbon Dioxide Anion Gap BUN Creatinine GFR Calculation BUN/Creatinine Ratio Glucose Calculated Osmolality Calcium Magnesium Total Bilirubin AST ALT Alkaline Phosphatase Troponin I < 0.015 < 0.015 Total Protein Albumin Globulin Albumin/Globulin Ratio Triglycerides 130 Cholesterol 227 H LDL Cholesterol 168.0 VLDL Cholesterol 26.0 HDL Cholesterol 37 L Heart Disease Risk Ratio 6.14 Urine Color Urine Appearance Urine pH Ur Specific [place] Urine Protein Urine Glucose (UA) Urine Ketones Urine Blood Urine Nitrate Urine Bilirubin Urine Urobilinogen Urine Leukocytes Urine RBC Urine WBC Ur Squamous Epith Cells Urine Bacteria Urine Mucus Ur Culture Indicated? Urine Opiates Screen Ur Barbiturates Screen Ur Phencyclidine Scrn U Amphetamine/Methamph U Benzodiazepines Scrn U Cocaine Metab Screen U Cannabinoids Screen 11/17/16 11/18/16 11/18/16 22:28 04:05 04:05 WBC 8.4 RBC 4.44 Hgb 13.5 Hct 38.0 MCV 85.6 L MCH 30 MCHC 35.5 RDW 12.8 Plt Count 196 MPV 10.6 Neut % (Auto) 66.5 Lymph % (Auto) 19.6 L [place] % (Auto) 10.0 Eos % (Auto) 3.1 Baso % (Auto) 0.4 Neut # (Auto) 5.6 Lymph # (Auto) 1.6 [place] # (Auto) 0.8 Eos # (Auto) 0.3 Baso # (Auto) 0.0 Immature Gran % 0.4 Nucleated RBC % 0.0 Immature Gran # 0.03 Nucleated RBCs # 0.00 Immature Plt Fraction 0.0 INR PT Patient/Control Mix Circ Anticoag PTT Sodium 137 Potassium 3.2 L Chloride 100 Carbon Dioxide 29 Anion Gap 11.2 BUN 11 Creatinine 0.90 GFR Calculation 106 BUN/Creatinine Ratio 12.00 Glucose 91 Calculated Osmolality 271.8 L Calcium 8.5 Magnesium 2.2 Total Bilirubin AST ALT Alkaline Phosphatase Troponin I < 0.015 Total Protein Albumin Globulin Albumin/Globulin Ratio Triglycerides Cholesterol LDL Cholesterol VLDL Cholesterol HDL Cholesterol Heart Disease Risk Ratio Urine Color Urine Appearance Urine pH Ur Specific [place] Urine Protein Urine Glucose (UA) Urine Ketones Urine Blood Urine Nitrate Urine Bilirubin Urine Urobilinogen Urine Leukocytes Urine RBC Urine WBC Ur Squamous Epith Cells Urine Bacteria Urine Mucus Ur Culture Indicated? Urine Opiates Screen Ur Barbiturates Screen Ur Phencyclidine Scrn U Amphetamine/Methamph U Benzodiazepines Scrn U Cocaine Metab Screen U Cannabinoids Screen - EKG EKG results: interpreted by me, no acute changes EKG shows: sinus rhythm IAlex Jennifer, MD, personally performed the services described in this documentation, ascribed by Mary Gallegos RN in my presence, and it is both accurate and complete [id number] .
[2016-11-18] MEDS ORDERED: ENOXAPARIN 40 MG/0.4 ML SYRINGE SUBCUT SCH (14:30)
[2016-11-18] MEDS: FUROSEMIDE 40 MG/4 ML VIAL IV SCH ×2 (15:37→15:47)
[2016-11-18] MEDS: hydroCHLOROthiazide 25 MG TABLET PO SCH (15:47)
[2016-11-18] MEDS: METHYLDOPA 500 MG TABLET PO SCH (15:47)
[2016-11-18] MEDS: PANTOPRAZOLE 40 MG TABLET PO SCH (15:47)
--- NOTE | 2016-11-18 17:03 | Hospitalist Progress Note ---
Assessment and Plan (1) Chest pain Status: Acute Assessment and plan: The patient will be observed overnight and we will supplement potassium and recheck in the morning. Current Visit: Yes (2) Essential hypertension Status: Chronic Current Visit: Yes Hospitalist: Subjective Interval history: The patient was admitted the hospital with atypical chest pain. The patient had treadmill exercise test today and the nuclear medicine portion has not yet been interpreted. Exam - Constitutional Vitals: Period Temp Pulse Resp BP Sys/Bell Pulse Ox Last 24 Hr 97.2 F-98.1 F 65-97 18-20 115-143/68-90 94-98 General appearance: mild distress - Respiratory Respiratory exam: Present: clear to auscultation bilaterally - Cardiovascular Cardiovascular exam: Present: regular rate and rhythm - GI/Abdominal GI/Abdominal exam: Present: normal bowel sounds ( chores is) Results - Labs CBC & BMP: 11/18/16 04:05 11/18/16 04:05 Lab Results: I have reviewed the past 24 hour labs
[2016-11-18] MEDS: POTASSIUM CHLORIDE 20 MEQ TABLET PO SCH ×2 (17:48→21:19)
--- NOTE | 2016-11-18 17:59 | Event Note ---
I spoke with patient, told her that her stress test was negative for ischemia. Additionally her repeat urine drug screen was negative. We discussed weight loss, deconditioning and her recent illness at length. We discussed weight loss strategies for greater than 20 minutes. Her symptoms may be pulmonary in nature as well. She does not appear to have a cardiac source of her symptoms. We will sign off.
--- NOTE | 2016-11-18 18:17 | Nuclear Medicine Report ---
EXERCISE STRESS TEST DATE: 11/18/2016 REFERRING: Radha Johnson MD INTERPRETING: Radha Johnson MD INDICATION: A 41-year-old white female with chest pain, shortness of breath. PROCEDURE: The patient then underwent exercise Cardiolite for protocol. A 10 mCi Technetium 99 were injected for rest imaging. Subsequently, the patient was exercised per Markel protocol and at peak s tress 30 mCi of technetium 99 were injected for stress imaging. ECG interpretation is provided and supervised by practitioner Heriberto, then reviewed by me. The patie nt exercised according to Markel protocol for 6 minutes and 25 seconds achieving a maximum heart rate of 158 beats per minute (88% maximum predicted heart rate) and 7.7 METS. Blood pressure was 130/84. The patient did not experience any chest pain. Moderate dyspnea on exertion was noted. No ST change s or arrhythmias occurred. SPECT images were obtained in the short axis, horizontal and vertical long axis with gating. Ejectio n fraction is 84%. End-diastolic volume 47 mL, end-systolic volume 8 mL, stroke volume is 39 mL. Ov erall wall motion is grossly normal. At rest, there is a small extent, mild intensity perfusion defect noted in the mid anterior wall. Wi th stress imaging, there is homogeneous radiotracer uptake throughout the myocardium. IMPRESSION: 1. NORMAL LEFT VENTRICULAR SYSTOLIC FUNCTION. 2. GOOD CHRONOTROPIC COMPETENCE WITH EXERCISE. 3. ECG PORTION OF THE TEST IS NEGATIVE FOR ISCHEMIA. 4. NO GROSS NUCLEAR EVIDENCE OF REVERSIBLE ISCHEMIA. Procedure performed and interpreted at [facility] Department of Radiology.
[2016-11-18] MEDS: ROSUVASTATIN 10 MG TABLET PO SCH (21:19)
[2016-11-19] MEDS: POTASSIUM CHLORIDE 20 MEQ TABLET PO SCH (02:14)
[2016-11-19 05:56] LABS: Calcium 8.4 MG/DL (8.5-10.1); Magnesium 2.2 MG/DL (1.8-2.4); Potassium 3.2 MMOL/L (3.5-5.1)
[2016-11-19] MEDS: FUROSEMIDE 40 MG/4 ML VIAL IV SCH (08:43)
[2016-11-19] MEDS: METHYLDOPA 500 MG TABLET PO SCH (08:43)
[2016-11-19] MEDS: hydroCHLOROthiazide 25 MG TABLET PO SCH (08:43)
[2016-11-19] MEDS: PANTOPRAZOLE 40 MG TABLET PO SCH (08:43)
--- NOTE | 2016-11-19 11:30 | Discharge Summary ---
<Saira Guallpa - Last Filed: 11/19/16 12:44> Hospital Course - Hospital Course Hospital Course: Ms Verdin 41 year old white female w/PMHx of hypertension presenting to the ED on 11/17/16 with a 2 wk history of intermittent chest pain and pressure with associated diaphoresis and bilateral arm numbness and tingling. IN ED: patient is afebrile and her vital signs are stable, EKG and troponins are normal. She does have a mild elevated T bili of 1.2 and small leukocytes in her urine. CXR : negative. Hospital Medicine consulted for further evaluation of chest pain and shortness of breath. Admitted to telemetry, repeat lab and EKG, consulted cardiology. Cardiology plan/recommended: Atypical cardiac etiology. Normal systolic function per Echo with no significant valvular disease, EF 65%. Pulmonary embolism was ruled out. With clinical findings and risk factors for CAD, proceeded with nuclear stress testing which revealed Normal Left Ventricular Systolic Function and no evidence of ischemia. Recommended weight loss strategies. Chest discomfort is not cardiac source of her symptoms, may be pulmonary in nature. Today 11/19/16 Patient is feeling better with very little occasional chest discomfort. She will need to follow up with Cardiology services in 1-2 weeks. She will need to follow up with Primary Care Physician in 1 -2 weeks On the date of discharge, the chest is clear and abdomen soft. Heart has regular rate and rhythm.. Patient medications were reconciled upon admission, and again at the time of discharge. The patient was screened for tobacco use and found to be a occasional smoker. The patient was given 4 minutes of tobacco avoidance education. The patient's medical decsion maker is themself, and when asked, they asked to be Full code. Discharge Time was 32 minutes, including final examination, evaluation and planning, education, reconciliation of medications, writing prescriptions, coordinating care with pillowcase maker, and preparing discharge documentation. Discharge Plan - Discharge Data Disposition: Disch To Home/Self Care - Discharge Medications Continue hydroCHLOROthiazide [Hydrochlorothiazide] 25 mg PO QAM #90 Methyldopa 500 mg PO QAM #90 - Follow Up or Referral Follow Up: Your,PCP [Other] - Forms/Instructions Exam - Constitutional Vitals: Period Temp Pulse Resp BP Sys/Bell Pulse Ox Last 24 Hr 97.1 F-98.7 F 73-97 16-18 117-142/71-87 92-96 General appearance: no acute distress, over weight - Head Head exam: Present: normal inspection - Eye Eye exam: Present: EOMI Pupils: Present: WONG - Neck Neck exam: Present: normal inspection. Absent: thyromegaly - Respiratory Respiratory exam: Present: clear to auscultation bilaterally. Absent: rhonchi, stridor, wheezes - Cardiovascular Cardiovascular exam: Present: regular rate and rhythm - GI/Abdominal GI/Abdominal exam: Present: normal bowel sounds, soft. Absent: tenderness, rebound - Extremities Exam Extremities exam: Present: normal inspection, full ROM. Absent: edema - Neurological Exam Neurological exam: Present: alert, oriented X3 - Psychiatric Psychiatric exam: Present: normal affect, normal mood. Absent: agitated, anxious - Skin Skin exam: Present: normal color, warm, dry Discharge Results Procedures and tests throughout hospitalization: Pending Orders 11/17/16 Urine Culture Routine Labs on day of discharge: Labs from last 24 hours 11/19/16 04:49 Sodium 136 Potassium 3.2 L Chloride 100 Carbon Dioxide 28 Anion Gap 11.2 BUN 11 Creatinine 0.80 GFR Calculation 122 BUN/Creatinine Ratio 13.00 Glucose 103 Calculated Osmolality 270.0 L Calcium 8.4 L Magnesium 2.2 Preliminary micro results at discharge 11/17/16 Unknown Urine Culture - Preliminary Urine,Clean Catch No Growth at 24 hours. DS: Provider Date of admission: 11/17/16 13:40 Primary care physician: . No PCP Attending physician on admission: Jaya Cervantes Consults: 11/17/16 14:23 Consult to Physician [CONS] Routine Comment: chest pain, LE edema Consulting Provider: Cardiology - [facility] When should Consulting Provider be notified: Now Discharging clinician: Saira Guallpa NP <Markel Jama - Last Filed: 11/19/16 16:31> Hospital Course - Time spent with patient Time with patient DS: Less than 30 minutes Diagnosis - Discharge Diagnosis (1) Chest pain Status: Resolved (2) Essential hypertension Status: Chronic Discharge Plan - Discharge Data Condition at Discharge: Stable Discharge Diet: heart healthy Activity: resume usual activities as tolerated
[2016-11-19 12:07] VITALS: BP 119/87
== END 2016-11-19 15:10 | disposition home or self-care (01) ==
LOC: N.ED 11:10 → INTOOBSV 13:40 → SUATTDRO 13:40 → N.EDINP 13:40 → N.TELES 15:00
PROVIDERS: ATTEND Internal Medicine